=== PATIENT | female | born 1990 | race American Indian/Alaskan Native ===

== ENCOUNTER 2019-07-01 14:52 | Outpatient (CLI) | payer MEDICAID ==
[2019-07-01] MEDS ORDERED: LACTATED RINGERS 500 ML IV ONE ×2 (16:16→18:54)
[2019-07-01] MEDS ORDERED: LACTATED RINGERS 1,000 ML IV SCH (17:00)
[2019-07-01 17:19] LABS: Bacteria,Urine 1+ /HPF (Negative); Bilirubin,Urine NEG (Negative); Blood,Urine NEG (Negative); Color,Urine Yellow (Yellow); Mucus,Urine FEW /HPF; Protein,Urine <15 mg/dL mg/dL (Negative); Urobilinogen,Urine < 2.0 mg/dL (<2.0)
[2019-07-01] MEDS ORDERED: TERBUTALINE 1 MG/1 ML INJ SUB-Q SCH (19:00)
[2019-07-01 20:01] VITALS: BP 144/66
== END 2019-07-01 20:29 | disposition home or self-care (01) ==
LOC: TRG 14:52
PROVIDERS: ATTEND Obstetrics & Gynecology
DX: O62.9 Abnormality of forces of labor, unspecified (principal); O99.343 Other mental disorders complicating pregnancy, third trimester; F41.9 Anxiety disorder, unspecified; F32.9 Major depressive disorder, single episode, unspecified; Z3A.35 35 weeks gestation of pregnancy
CPT/HCPCS: 81001; 96360; 96361; 96372; J3105; J7120

== ENCOUNTER 2019-07-03 15:50 | Observation (INO) | payer MEDICAID ==
[~2019-07-03 15:50] MED LIST: FLUoxetine 20 MG CAP PO SCH
[2019-07-03] MEDS ORDERED: LACTATED RINGERS 1,000 ML IV ONE (17:06)
[2019-07-03 17:27] LABS: Bilirubin,Urine NEG (Negative); Blood,Urine NEG (Negative); Color,Urine Yellow (Yellow); Mucus,Urine FEW /HPF; Protein,Urine <15 mg/dL mg/dL (Negative)
[2019-07-03] MEDS ORDERED: TERBUTALINE 1 MG/1 ML INJ SUB-Q ONE (18:26)
[2019-07-03] MEDS ORDERED: MAGNESIUM SULFATE 40GM/1000ML 0 GM/0 ML BAG IV ONE (19:09)
[2019-07-03] MEDS ORDERED: MAGNESIUM SULFATE 0 GM/0 ML BAG IV ONE (19:09)
[2019-07-04 01:20] LABS: Hematocrit 34.5 % (30.3-42.9); Hemoglobin 11.5 gm/dl (10.1-14.3); Mean Corpuscular HGB Conc 33 % (30-34); Mean Corpuscular Volume 84 fl (79-97); Platelet Count 138 K/mm3 (140-440); Red Blood Count 4.14 M/mm3 (3.65-5.03); Red Cell Distribution Width 14.5 % (13.2-15.2)
--- NOTE | 2019-07-04 03:28 | History and Physical Report ---
History of Present Illness Date of examination: 07/03/19 Date of admission: 07/03/19 19:31 Chief complaint: 29 y/o presents at 36.1 wks with c/o uc q3 min apart. Pt states she was 1 cm on Sunday and 3 cm yesterday. She admits to pos FM, denies vag bleeding but states uc are getting worse. History of present illness: 29 y/o presents at 36.1 wks. Pt initiated pnc at a practice in [place], [place] on 01/24/20 and transferred her care to [facility] at 25.2 wks on . Pt has a hx of anxiety/ depression and bipolar. She takes prozac 60mg qd. She reports to [facility] with c/o uc q 3min. Pt admits to pos FM and denies vag bleeding. 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 Family/Genetic History: other (anxiety/depression, bipolar) Social history: no significant social history, full code - Obstetrical History Expected Date of Delivery: 07/30/19 Actual Gestation: 36 Week(s) 2 Day(s) : 3 Para: 2 Hx # Term Pregnancies: 2 Number of Pregnancies: 0 Spontaneous Abortions: 0 Induced : 0 Number of Living Children: 2 #1 Gender: Female year: 2[birth year] Birthweight: 7 lb 4.8 oz Method of Delivery: Vaginal Gestational age at delivery: 41 Complications: none #2 Infant Gender: Female year: 2,[birth year] Birthweight: 7 lb 4.8 oz Method of Delivery: Vaginal Gestational age at delivery: 39 Complications: none Medications and Allergies Allergies Allergy/AdvReac Type Severity Reaction Status Date / Time No Known Allergies Allergy Verified 07/03/19 16:18 Home Medications Medication Instructions Recorded Confirmed Last Taken Type Cyclobenzaprine 20 mg PO DAILY 07/03/19 07/03/19 07/02/19 22:00 History Daily Combo Pack 600 mg PO DAILY 07/03/19 07/03/19 07/03/19 09:00 History FLUoxetine 20 mg PO DAILY 07/03/19 07/03/19 07/02/19 22:00 History Active Meds: Active Medications Fluoxetine HCl (Prozac) 20 mg PO QDAY SAMIRA Multivitamins/Iron/Calcium ( Vitamin) 1 each PO DAILY [facility] Review of Systems All systems: negative Eyes: deferred Ears, nose, mouth and throat: deferred Breasts: normal - Vital Signs Vital signs: Vital Signs Temp Pulse Resp BP 98.1 F 91 H 15 127/63 07/03/19 16:24 07/03/19 16:24 07/03/19 16:24 07/03/19 16:24 Temp Pulse Resp BP Pulse Ox 98.6 F 67 18 110/54 07/04/19 00:00 07/04/19 01:47 07/04/19 00:00 07/04/19 01:47 - Physical Exam Breasts: Positive: normal Abdomen: Positive: normal appearance, soft Genitourinary (Female): Positive: normal external genitalia, normal perenium Vulva: both: normal Vagina: Positive: normal moisture Uterus: Positive: enlarged Anus/Rectum: Positive: normal perianal skin Extremities: Positive: normal - Obstetrical FHR: category 1 Uterine Contraction Monitor Mode: External Cervical Dilatation: 4 Cervical Effacement Percentage: 60 station: -3 Uterine Contraction Frequency (min): q3 Uterine Contraction Pattern: Regular Uterine Tone Measurement Phase: Resting Uterine Contraction Intensity: Mild Results Result Diagrams: 07/04/19 00:45 Abnormal lab results 07/03/19 07/04/19 Range/Units Unknown 00:45 Plt Count 138 L (140-440) K/mm3 Urine WBC (Auto) 7.0 H (0.0-6.0) /HPF All other labs normal. Assessment and Plan A:IUP @ 36.1 wks PTL Anxiety/Depression/ Bipolar Morbid obesity S>D p: 24 hr observation Monitor with fluids UA C&S D/C home tomm if not progressing POC agrees with plan - Patient Problems (1) labor Current Visit: Yes Status: Acute (2) Anxiety and depression Current Visit: Yes Status: Acute (3) Bipolar 1 disorder Current Visit: Yes Status: Acute (4) Morbid obesity Current Visit: Yes Status: Acute (5) Uterine size date discrepancy Current Visit: Yes Status: Acute
[2019-07-04] MEDS ORDERED: LACTATED RINGERS 1,000 ML ONE (05:41)
[2019-07-04 07:22] VITALS: BP 119/63
[2019-07-04] MEDS ORDERED: [UNRECOGNIZED DRUG - OTHER] PO SCH (10:00)
[2019-07-04] MEDS ORDERED: PRENATAL VIT27-FE FUMARATE-FOLIC ACID VIT TAB PO SCH (10:00)
[2019-07-04] MEDS ORDERED: FLUoxetine 20 MG CAP PO SCH (10:00)
== END 2019-07-04 07:21 | disposition home or self-care (01) ==
LOC: TRG 15:50 → LD 19:31 → TRG 19:31
PROVIDERS: ADMIT Obstetrics & Gynecology; ATTEND Obstetrics & Gynecology
DX: O62.9 Abnormality of forces of labor, unspecified (principal); O99.213 Obesity complicating pregnancy, third trimester; E66.01 Morbid (severe) obesity due to excess calories; O99.343 Other mental disorders complicating pregnancy, third trimester; F41.8 Other specified anxiety disorders; Z3A.36 36 weeks gestation of pregnancy
CPT/HCPCS: 36415; 81001; 85027; 86592; 86850; 86900; 86901; 96372; G0378; J3105; J7120; J3475

== ENCOUNTER 2019-07-08 15:40 | Outpatient (CLI) | payer MEDICAID ==
[2019-07-08 16:08] VITALS: BP 122/64
[2019-07-08] MEDS ORDERED: LACTATED RINGERS 500 ML IV ONE (16:26)
--- NOTE | 2019-07-08 18:20 | Ultrasound Report ---
Limited OB ultrasound INDICATION: Decreased movement FINDINGS: There is a single intrauterine with cephalic presentation. Amniotic fluid index i s normal measuring 12.6 cm. heart rate is 137 bpm. IMPRESSION: There is a single viable intrauterine . The amniotic fluid index is normal. BIOPHYSICAL PROFILE INDICATION: Decreased movement COMPARISON: None FINDINGS: breathing movement: 2/2 movement: 2/2 posture and tone: 2/2 Qualitative amniotic fluid volume: 2/2 IMPRESSION: Total score for biophysical profile is 8/8 heart rate is 137 bpm Signer Name: Gary Rivers MD Signed: 07/08/2019 6:16 PM Workstation Name: [id number]
== END 2019-07-08 19:07 | disposition home or self-care (01) ==
LOC: TRG 15:40
PROVIDERS: ATTEND Obstetrics & Gynecology
DX: O62.9 Abnormality of forces of labor, unspecified (principal); O36.8130 Decreased fetal movements, third trimester, not applicable or unspecified; Z3A.36 36 weeks gestation of pregnancy; Z87.891 Personal history of nicotine dependence
CPT/HCPCS: 59025; 76815; 76819; 96360; 96365; J7120

== ENCOUNTER 2019-07-12 20:34 | Inpatient (IN) | payer MEDICAID ==
[2019-07-12] MEDS ORDERED: ePHEDrine SULFATE 50 MG/1 ML INJ IV PRN (23:08)
[2019-07-12] MEDS ORDERED: fentaNYL 100 MCG/2 ML INJ IV PRN (23:08)
[2019-07-12] MEDS ORDERED: LIDOCAINE (2%) 20 MG/1 ML VIAL 20 ML MDV INFILTRATI ONE (23:08)
[2019-07-12] MEDS ORDERED: TERBUTALINE 1 MG/1 ML INJ SUB-Q PRN (23:08)
--- NOTE | 2019-07-12 23:21 | History and Physical Report ---
History of Present Illness Date of examination: 07/12/19 Date of admission: 07/12/2019 Chief complaint: Contractions History of present illness: 29 year old presents to L&D with contractions. Patient denies leaking of fluid or vaginal bleeding. Patient reports active movement. Patient received care at [facility] and records are available. LMP 10/23/2018. EDC 07/30/2019. significant for anxiety/depression (takes Prozac), bipolar disorder, obesity, size greater than dates. labs are as follows: B+, antibody screen negative, pap smear ASC- US/neg. HPV, rubella immune, hepatitis B surface antigen negative, HIV negative, RPR nonreactive, HSV 2 negative, chlamydia negative, gonorrhea negative, 1 hour sugar test 117, GBS negative. 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 denies: chlamydia, gonorrhea, hepatitis B, hepatitis C, herpes, HIV, syphilis Family/Genetic History: other (bipolar disorder, anxiety disorder, uterine fibroids, depression) Social history: single, lives with family, full code. denies: smoking, alcohol abuse, prescription drug abuse, IV drug use - Obstetrical History Expected Date of Delivery: 07/30/19 Actual Gestation: 37 Week(s) 4 Day(s) : 3 Para: 2 Hx # Term Pregnancies: 2 Number of Pregnancies: 0 Spontaneous Abortions: 0 Induced : 0 Number of Living Children: 2 Medications and Allergies Allergies Allergy/AdvReac Type Severity Reaction Status Date / Time No Known Allergies Allergy Verified 07/03/19 16:18 Home Medications Medication Instructions Recorded Confirmed Last Taken Type Cyclobenzaprine 20 mg PO DAILY 07/03/19 07/03/19 07/02/19 22:00 History Daily Combo Pack 600 mg PO DAILY 07/03/19 07/03/19 07/03/19 09:00 History FLUoxetine 20 mg PO DAILY 07/03/19 07/03/19 07/02/19 22:00 History Active Meds: Active Medications Ephedrine Sulfate (Ephedrine Sulfate) 10 mg IV Q2M PRN PRN Reason: Hypotension Fentanyl (Sublimaze) 100 mcg IV Q2H PRN PRN Reason: Labor Pain Oxytocin/Sodium Chloride (Pitocin/Ns 20 Unit/1000ml Drip) 20 units in 1,000 mls @ 125 mls/hr IV DIRECT SAMIRA Lactated Ringer's (Lactated Ringers) 1,000 mls @ 125 mls/hr IV DIRECT SAMIRA Lidocaine (Xylocaine 2%) 20 ml INFILTRATI ONCE ONE Stop: 07/12/19 23:09 Terbutaline Sulfate (Brethine) 0.25 mg SUB-Q ONCE PRN PRN Reason: Hyperstimulation/Hypertonicity Review of Systems All systems: negative (contractions) - Vital Signs Vital signs: Vital Signs Pulse BP 87 123/58 07/12/19 20:51 07/12/19 20:51 Temp Pulse Resp BP Pulse Ox 87 123/58 07/12/19 20:51 07/12/19 20:51 - Physical Exam Abdomen: Positive: normal appearance, soft. Negative: distention, tenderness, guarding, rigidity Genitourinary (Female): Positive: normal external genitalia, normal perenium. Negative: perineal/vulvar lesions (no lesions seen on careful exam with brght light upon admission) Vagina: Positive: normal moisture Uterus: Positive: enlarged. Negative: tender Anus/Rectum: Positive: normal perianal skin Extremities: Positive: normal Deep Tendon Reflex Grade: Absent 0 - Obstetrical FHR: category 1 Uterine Contraction Monitor Mode: External Cervical Dilatation: 5 Cervical Effacement Percentage: 90 station: -1 Uterine Contraction Pattern: Regular Uterine Contraction Intensity: Moderate Results Result Diagrams: 07/12/19 23:40 All other labs normal. Assessment and Plan A: at 37 weeks, 3 days gestation. Active labor. GBS negative. P: Admit. EFM. Anticipate vaginal .
[2019-07-12] MEDS ORDERED: OXYTOCIN 20 UNIT/1000ML DRIP 20 UNITS/1,000 ML BAG IV SCH (23:45)
[2019-07-13 00:09] LABS: Hematocrit 35.3 % (30.3-42.9); Hemoglobin 11.9 gm/dl (10.1-14.3); Mean Corpuscular HGB Conc 34 % (30-34); Mean Corpuscular Volume 82 fl (79-97); Platelet Count 164 K/mm3 (140-440); Red Blood Count 4.29 M/mm3 (3.65-5.03); Red Cell Distribution Width 14.6 % (13.2-15.2)
[2019-07-13] MEDS: LACTATED RINGERS 1,000 ML IV SCH ×4 (00:15→17:54)
[2019-07-13] MEDS ORDERED: DEXMEDETOMIDINE 200 MCG/2 ML VIAL IV ONE (01:28)
--- NOTE | 2019-07-13 02:11 | Anesthesia Consultation ---
Anesthesia Consult and Med Hx Date of service: 07/13/19 - Airway Anesthetic Teeth Evaluation: Good ROM Head & Neck: Adequate Mental/Hyoid Distance: Adequate Mallampati Class: Class II Intubation Access Assessment: Good - Pulmonary Exam CTA: Yes - Cardiac Exam Cardiac Exam: RRR - Pre-Operative Health Status ASA Pre-Surgery Classification: ASA2, Emergency Proposed Anesthetic Plan: Epidural - Pulmonary Hx Asthma: No COPD: No Hx Pneumonia: No - Cardiovascular System Hx Hypertension: No - Central Nervous System Hx Seizures: No Hx Psychiatric Problems: Yes (depression taking prozac/bipolar) - Endocrine Hx Renal Disease: No Hx End Stage Renal Disease: No Hx Hypothyroidism: No Hx Hyperthyroidism: No - Hematic Hx Anemia: No Hx Sickle Cell Disease: No - Other Systems Hx Alcohol Use: No Hx Obesity: Yes
[2019-07-13] MEDS ORDERED: NALOXONE 2 MG/2 ML INJ IV PRN (02:13)
--- NOTE | 2019-07-13 02:13 | Progress Note ---
Labor Epidural - Labor Epidural Start Time: 01:30 Stop Time: 01:56 Performed by:: AZALEA COLLIER Procedure: Patient is requesting a laboring epidural for laboring pain. Patient IDed, H&P reviewed, all questions and concerns were answered, and consent was signed. Timeout was performed at bedside. Patient in sitting position. Sterile prep and drape was performed. [3] ml of 1% lidocaine skin wheal at L[3]- L [4]. 18- gauge Touhy epidural needle was advanced to loss of resistance with air technique after multiple attempts. Negative CSF negative blood. Epidural catheter advanced to [15] centimeters. [-] Aspiration [-] test dose. Sterile dressing applied. Patient tolerated procedure.
[2019-07-13] MEDS: fentaNYL-BUPIV 2 MCG/ML-0.125% 200 MCG/100 ML BAG EPIDURAL SCH ×3 (02:21→17:56)
[2019-07-13] MEDS ORDERED: ONDANSETRON 4 MG/2 ML INJ ONE (02:35)
[2019-07-13] MEDS ORDERED: ONDANSETRON 4 MG/2 ML INJ IM ONE (02:35)
[2019-07-13] MEDS ORDERED: ONDANSETRON 4 MG/2 ML INJ IV PRN (02:36)
--- NOTE | 2019-07-13 05:57 | Event Note ---
Date: 07/13/19 SVE /-1. Patient is comfortable since receiving epidural. Will augment.
[2019-07-13] MEDS ORDERED: OXYTOCIN DRIP 30 UNITS/500 ML BAG IV SCH (06:00)
[2019-07-13] MEDS ORDERED: OXYTOCIN DRIP 30,000 MILLIUNITS/500 ML BAG IV ONE (06:01)
--- NOTE | 2019-07-13 12:43 | Event Note ---
Date: 07/13/19 E 6.5/80/-1.
--- NOTE | 2019-07-13 17:39 | Ultrasound Report ---
Obstetrical ultrasound. HISTORY: Evaluate cord. FINDINGS: Limited obstetrical ultrasound was performed. A single viable intrauterine in the cephalic position has heart tones at 140 4H per minute. The cord lies superior to the baby's h ead and cervix area. Signer Name: Ivan Haider MD Signed: 07/13/2019 5:35 PM Workstation Name: [id number]
[2019-07-13] MEDS ORDERED: MAGNESIUM HYDROXIDE (MOM) ORAL LIQD UDC PO PRN (19:43)
[2019-07-13] MEDS ORDERED: LANOLIN/ZINC/DIMETHICONE (LANSINOH) 7 GM TP PRN (19:43)
[2019-07-13] MEDS ORDERED: WITCH HAZEL/ GLYCERIN PAD TP PRN (19:43)
--- NOTE | 2019-07-13 20:01 | Procedure Note ---
OB Delivery Note - Delivery Date of Delivery: 07/13/19 Surgeon: CHAU ASENCIO Estimated blood loss: other (250 cc) - Vaginal Delivery presentation: vertex Delivery position: OA Intrapartum events: none Delivery induction: none Delivery augmentation: pitocin Route of delivery: Delivery placenta: spontaneous Delivery cord: 3 umbilical vessels Episiotomy: none Delivery laceration: none Anesthesia: none Delivery comments: Spontaneous vaginal delivery at 18:58 of livebrn female infant over intact perineum with apgars of 8/9. Loose nuchal cord times 1, manually reduced. Baby placed immediately on mom's chest after delivery. Spontaneous cry and respirations. Baby bulb suctioned and dried. 3 vessel cord double clamped and cut. Spontaneous delivery of intact placenta and membranes by wilson mechanism. EBL 250 cc. Pitocin to IV fluids after delivery of placenta. Fundus firm and midline. No lacerations noted. Vaginal sweep negative. Sponge count correct. Mother and baby stable.
[2019-07-13] MEDS: IBUPROFEN 600 MG TAB PO SCH (22:19)
[2019-07-14] MEDS: HYDROcodone/ACETAMINOPHEN 5-325 MG TAB PO PRN ×2 (00:26→10:01)
[2019-07-14] MEDS: IBUPROFEN 600 MG TAB PO SCH ×3 (04:45→18:00)
--- NOTE | 2019-07-14 10:24 | Progress Note ---
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 Notes and OB Delivery Procedure Note Patient reports: appetite normal, voiding normally, pain well controlled, ambulating normally, no dizzy ambulation : doing well Objective - Vital Signs Latest vital signs: Vital Signs Temp Pulse Resp BP BP Pulse Ox 07/14/19 10:01 18 07/14/19 07:52 97.9 F 79 18 113/55 97 07/14/19 04:00 98.0 F 78 18 113/68 99 07/14/19 00:00 98.7 F 79 16 124/53 98 07/13/19 21:15 98.4 F 88 16 137/69 98 07/13/19 20:30 98.7 F 92 H 18 127/60 98 07/13/19 20:28 95 H 98 07/13/19 20:23 99 H 98 07/13/19 20:18 91 H 98 07/13/19 20:14 92 H 127/60 94 07/13/19 20:13 98 H 97 07/13/19 20:08 97 H 99 07/13/19 20:03 89 99 07/13/19 19:58 73 98 07/13/19 19:53 77 98 07/13/19 19:48 71 97 07/13/19 19:44 70 115/59 07/13/19 19:43 78 98 07/13/19 19:38 82 99 07/13/19 19:33 77 98 07/13/19 19:28 101 H 98 07/13/19 19:23 93 H 99 07/13/19 19:18 90 98 07/13/19 19:15 83 123/59 07/13/19 19:13 79 98 07/13/19 19:08 80 98 07/13/19 19:03 89 97 07/13/19 18:58 160 H 100 07/13/19 18:53 97 H 100 07/13/19 18:50 64 78 L 07/13/19 18:48 119 H 99 20 18:45 116 H 127/80 94 20 18:42 90 100 0320 18:39 107 H 94 07/13/19 18:37 71 100 20 18:32 86 100 20 18:27 78 100 20 18:22 80 100 20 18:17 89 100 07/13/19 18:15 72 126/59 07/13/19 18:12 75 100 07/13/19 18:07 72 100 07/13/19 18:02 88 100 07/13/19 17:57 84 99 07/13/19 17:52 84 100 07/13/19 17:49 76 134/63 07/13/19 17:47 86 99 20 17:45 81 134/100 07/13/19 17:42 87 99 07/13/19 17:37 92 H 98 07/13/19 17:32 77 98 07/13/19 17:27 81 98 07/13/19 17:22 73 98 07/13/19 17:17 72 97 07/13/19 17:14 70 107/55 07/13/19 17:12 76 98 07/13/19 17:07 79 99 07/13/19 17:02 86 100 07/13/19 16:57 72 99 20 16:52 72 97 20 16:47 70 95 20 16:44 98 H 114/57 20 16:42 97 H 96 07/13/19 16:37 115 H 96 07/13/19 16:35 98.6 F 16 99 07/13/19 16:32 112 H 98 20 16:27 113 H 99 20 16:22 79 99 20 16:17 98 H 98 20 16:14 123 H 108/53 20 16:12 93 H 97 20 16:07 96 H 98 07/13/19 16:02 78 97 031520 15:57 85 96 031520 15:52 100 H 98 031520 15:47 94 H 98 20 15:45 81 114/56 20 15:42 77 98 0320 15:37 75 97 03 15:32 96 H 98 07/13/19 15:27 76 99 07/13/19 15:22 89 99 07/13/19 15:17 76 98 07/13/19 15:14 96 H 129/58 07/13/19 15:12 81 97 07/13/19 15:07 86 100 07/13/19 15:02 86 100 07/13/19 14:57 72 99 07/13/19 14:52 72 97 07/13/19 14:47 113 H 97 07/13/19 14:44 75 119/56 07/13/19 14:42 93 H 98 07/13/19 14:37 75 98 07/13/19 14:32 85 96 07/13/19 14:27 72 97 07/13/19 14:22 78 98 07/13/19 14:17 86 97 07/13/19 14:15 72 126/56 07/13/19 14:12 71 98 07/13/19 14:07 72 97 07/13/19 14:02 65 100 07/13/19 13:57 107 H 99 07/13/19 13:52 74 98 07/13/19 13:47 85 98 07/13/19 13:44 76 116/56 07/13/19 13:42 91 H 99 07/13/19 13:37 78 98 07/13/19 13:32 75 98 07/13/19 13:27 71 99 07/13/19 13:22 69 97 07/13/19 13:17 66 99 07/13/19 13:15 84 130/59 07/13/19 13:12 72 96 07/13/19 13:07 73 98 07/13/19 13:03 74 94 07/13/19 13:02 89 96 07/13/19 12:57 75 96 07/13/19 12:52 84 97 07/13/19 12:47 73 96 07/13/19 12:46 85 118/55 93 07/13/19 12:42 69 96 07/13/19 12:37 87 99 07/13/19 12:32 93 H 97 07/13/19 12:27 68 99 07/13/19 12:22 77 98 07/13/19 12:17 79 98 07/13/19 12:14 86 118/56 07/13/19 12:12 89 99 07/13/19 12:07 94 H 99 07/13/19 12:04 98.0 F 18 99 07/13/19 12:02 100 H 98 07/13/19 12:00 107 H 90 07/13/19 11:57 74 99 07/13/19 11:52 70 98 07/13/19 11:47 68 100 07/13/19 11:46 90 111/52 07/13/19 11:42 95 H 99 07/13/19 11:37 97 H 97 07/13/19 11:32 118 H 97 07/13/19 11:27 88 97 07/13/19 11:22 69 98 07/13/19 11:17 102 H 98 07/13/19 11:16 70 109/55 07/13/19 11:12 64 99 07/13/19 11:07 66 97 07/13/19 11:02 88 98 07/13/19 10:57 72 97 07/13/19 10:52 68 98 07/13/19 10:47 68 97 07/13/19 10:44 68 105/54 07/13/19 10:42 84 97 07/13/19 10:37 82 98 07/13/19 10:32 73 96 07/13/19 10:27 79 98 07/13/19 10:22 89 97 Intake and Output 07/13/19 07/14/19 07/14/19 23:59 07:59 15:59 Intake Total 1296.133 Output Total 350 Balance 946.133 Intake: IV 1056.133 Lactated Ringers 1,000 ml 1000 @ 125 mls/hr IV DIRECT SAMIRA Rx#:[id number] PITOCin/NS 30 UNIT/500ML 56.133 30 units In 500 ml @ Per Protocol IV TITR SAMIRA Rx#: [id number] Oral 240 Output: Urine 350 Indwelling Catheter 350 Other: Total, Intake Amount 240 Total, Output Amount 350 # Voids Void 3 Estimated Blood Loss 250 - Exam Cardiovascular: Present: Regular rate Lungs: Present: Clear to auscultation, Normal air movement Abdomen: Present: normal appearance, soft Vulva: both: normal Uterus: Present: normal, firm, fundal height at umbilicus Extremities: Present: normal Comments: small lochia
--- NOTE | 2019-07-14 10:25 | Discharge Summary ---
Providers - Providers Date of Admission: 07/12/19 23:16 Date of discharge: 07/15/19 Attending physician: DINA THOMAS Primary care physician: DINA THOMAS Hospitalization Reason for admission: active labor, IUP at term Delivery: Episiotomy: none Laceration: none Other procedures: none complications: none baby: female Hospital course: Uncomplicated Condition at discharge: Stable Disposition: DC-01 TO HOME OR SELFCARE - Discharge Diagnoses (1) Status post normal vaginal delivery Status: Acute Plan - Provider Discharge Summary Activity: routine, no sex for 6 weeks, no heavy lifting 4 weeks, no strenuous exercise Diet: routine Instructions: routine Additional instructions: [] Smoking cessation referral if applicable(refer to patient education folder for contact #) [] Refer to [facility] Booklet Call your doctor immediately for: * Fever > 100.5 * Heavy vaginal bleeding ( >1 pad per hour) * Severe persistent headache * Shortness of breath * Reddened, hot, painful area to leg or breast * Drainage or odor from incision. * Keep incision clean and dry at all times and follow doctor's instructions regarding bathing/showering - Follow up plan Follow up: DINA THOMAS MD [Primary Care Provider] - 6 Weeks (Follow-up at [facility] as needed or in 6 weeks for exam)
--- NOTE | 2019-07-14 10:40 | Post Anesthesia Evaluation ---
- Post Anesthesia Evaluation Patient Participated: Yes Airway Patent: Yes Stable Respiratory Function: Yes Nausea/Vomiting: No Temp > 96.8F: Yes Pain Manageable: Yes Adequeate Hydration: Yes Anesthesia Complications: No Block Receding Appropriately: Yes Patient on Ventilator: No
[2019-07-14 10:41] LABS: Hematocrit 33.3 % (30.3-42.9); Hemoglobin 11.1 gm/dl (10.1-14.3)
[2019-07-15] MEDS: IBUPROFEN 600 MG TAB PO SCH ×3 (00:17→09:55)
[2019-07-15 09:18] VITALS: BP 107/52
== END 2019-07-15 10:40 | disposition home or self-care (01) | DRG 775 ==
LOC: TRG 20:34 → LD 23:16 → OB 07-13 21:00
PROVIDERS: ADMIT Obstetrics & Gynecology; ATTEND Obstetrics & Gynecology
PROC: 10E0XZZ Delivery of Products of Conception, External Approach (ICD-10-PCS; principal; 2019-07-13)
PROC: 3E0R3BZ Introduction of Anesthetic Agent into Spinal Canal, Percutaneous Approach (ICD-10-PCS; 2019-07-13)
PROC: 00HU33Z Insertion of Infusion Device into Spinal Canal, Percutaneous Approach (ICD-10-PCS; 2019-07-13)
DX: O99.214 Obesity complicating childbirth (principal); Z3A.37 37 weeks gestation of pregnancy; Z37.0 Single live birth; F32.9 Major depressive disorder, single episode, unspecified; E66.9 Obesity, unspecified; Z81.8 Family history of other mental and behavioral disorders; O99.344 Other mental disorders complicating childbirth
CPT/HCPCS: 36415; 76815; 85014; 85018; 85027; 86592; 86850; 86900; 86901; G0378; J2405; J2590; J3490; J7120